=== PATIENT | female | born 1975 | race Caucasian/White ===

== ENCOUNTER 2024-01-25 07:38 | Emergency (ER) | payer OTHER, SELFPAY ==
[2024-01-25] VITALS (10 sets, daily range): BP systolic 131–136; BP diastolic 77–88; PULSE 60–69; RESP 16; TEMP 36.5; O2SAT 97–100
--- NOTE | ~2024-01-25 | CT_ITS ---
Non-contrast CT scan of the Abdomen and Pelvis Clinical indication: Right flank pain Technique: 2.5 mm axial scans were obtained through the abdomen and pelvis without intravenous or or al contrast. Dose reduction technique was used on this scan by utilizing automated exposure control a nd iterative reconstruction technique. The dose-length product (DLP) was 736.56 mGy-cm. Findings: Images through the lung bases reveal minimal right pleural effusion. There is no evidence of renal or ureteral calculi. The kidneys and the ureters are nondilated. The liver, spleen, pancreas, and adrenals appear normal. Small gallstone present. There is no aortic aneurysm. There is no evidence of bowel obstruction. Normal appendix. Images through the pelvis were performed. There is no evidence of ascites or lymphadenopathy. Urinary bladder unremarkable. No definite adnexal mass seen. Impression: Cholelithiasis. Minimal right pleural effusion. Reviewed, dictated and finalized at [facility]. Impression: Cholelithiasis. Minimal right pleural effusion.
--- NOTE | 2024-01-25 08:34 | PC.NURSE ---
RN to bedside to start IV and administer medication ordered. Pt requests to not receive medication or IV at this time unless needed per imaging. Will hold off on IV and med administration per patient request. Pt to restroom at this time to provide urine specimen. Plan for CT.
[2024-01-25 08:47] LABS: Appearance Urine Clear (Clear); Bilirubin Urine Negative (Negative); Blood Urine Negative (Negative); Color Urine Yellow (Yellow); Glucose Urine UA Negative (Negative); Ketones Urine Negative (Negative); Leukocyte Esterase Ur Negative LEU/UL (Negative); Nitrate Urine Negative (Negative); Protein Urine Negative (Negative); Specific Grav Ur 1.023 (1.001-1.035); pH Urine 6.5 (5.0-9.0)
[2024-01-25 08:48] LABS: Add Urine Microscopic? NO
--- NOTE | 2024-01-25 10:12 | ED.GENADULT ---
HPI - General Adult General Chief complaint: Back Pain/Injury Stated complaint: right flank pain, nausea Time Seen by Provider: 01/25/24 07:52 History of Present Illness HPI narrative: patient is a 48-year-old female who presents ER with right-sided back pain. sudden onset this morning. Comes in waves. Will occasionally cause nausea. No upper abdominal pain. Has had some mild lower abdominal discomfort. No urinary frequency urgency or dysuria. Pain in the back is worse with lying backwards or bending forwards. It is also worse with direct palpation of the area. No history kidney stones. No association with eating or drinking. Related Data Allergies Allergy/AdvReac Type Severity Reaction Status Date / Time No Known Allergies Allergy Unverified 01/25/24 07:39 Review of Systems Review of Systems: All systems reviewed & are unremarkable except as noted in HPI and below Constitutional: Constitutional: Reports no additional constitutional complaints ENT: Reports system reviewed and no additional complaints, except as documented Cardiovascular: Cardiovascular: Reports no additional cardiovascular complaints Respiratory: Respiratory: Reports no additional respiratory complaints Gastrointestinal: Gastrointestinal: Reports no additional gastrointestinal complaints Musculoskeletal: Musculoskeletal: Reports back pain, Denies arthralgias and Denies joint swelling Neurologic: Reports system reviewed and no additional complaints, except as documented PMFSH Past Medical History Medical History (Updated 01/25/24 @ 10:16 by Alexander Barr MD) Healthy female adult Exam Narrative: GENERAL: Well-appearing, well-nourished, and in no acute distress. HEAD: Normocephalic, atraumatic. ENT: Mucous membranes moist. CHEST: Clear to auscultation. No respiratory distress. HEART: Regular rate and rhythm. Normal peripheral pulses. ABDOMEN: Soft, nontender, nondistended. back: No midline tenderness the T/ L-spine pleural there is right-sided paraspinal tenderness near the level of L4 reproducing patient's pain. EXTREMITIES: Normal range of motion. No edema. SKIN: Warm, dry, no rash. NEURO: Alert and oriented x3. PSYCH: Normal mood and affect. Course Course Emergency Course: No evidence of kidney stone. Symptoms not felt to be related to cholelithiasis but patient educated about this finding. She is open to receiving IM Toradol. She does not will muscle relaxers as they make her feel different in the mornings. Vital Signs Vital signs: Vital Signs Temperature 97.7 F 01/25/24 08:19 Pulse Rate 69 01/25/24 08:19 Respiratory Rate 16 01/25/24 08:19 Blood Pressure 132/83 01/25/24 08:19 Pulse Oximetry 99 01/25/24 08:19 Oxygen Delivery Room Air 01/25/24 08:19 Temperature 97.7 F 01/25/24 08:19 Pulse Rate 69 01/25/24 08:19 Respiratory Rate 16 01/25/24 08:19 Blood Pressure 132/83 01/25/24 08:19 Pulse Oximetry 99 01/25/24 08:19 Oxygen Delivery Room Air 01/25/24 08:19 Medical Decision Making Vital Signs Vital Signs: Vital Signs Temperature 97.7 F 01/25/24 08:19 Pulse Rate 69 01/25/24 08:19 Respiratory Rate 16 01/25/24 08:19 Blood Pressure 132/83 01/25/24 08:19 Pulse Oximetry 99 01/25/24 08:19 Oxygen Delivery Room Air 01/25/24 08:19 Temperature 97.7 F 01/25/24 08:19 Pulse Rate 69 01/25/24 08:19 Respiratory Rate 16 01/25/24 08:19 Blood Pressure 132/83 01/25/24 08:19 Pulse Oximetry 99 01/25/24 08:19 Oxygen Delivery Room Air 01/25/24 08:19 Lab Data Labs: Lab Results 01/25/24 Range/Units 08:40 Urine Color Yellow (Yellow) Urine Appearance Clear (Clear) Urine pH 6.5 (5.0-9.0) Ur Specific [place] 1.023 (1.001-1.035) Urine Protein Negative (Negative) mg/dL Urine Glucose (UA) Negative (Negative) mg/dL Urine Ketones Negative (Negative) mg/dL Ur Blood (Man) Negative (Negative) Uri
[2024-01-25] MEDS: KETOROLAC (*BKC) 60 MG/2 ML VIAL IM (10:21)
== END 2024-01-25 10:32 | disposition home or self-care (01) ==
PROVIDERS: Emergency Provider Emergency Medicine
DX: S39.012A Strain of muscle, fascia and tendon of lower back, initial encounter (principal); K80.20 Calculus of gallbladder without cholecystitis without obstruction; X58.XXXA Exposure to other specified factors, initial encounter
CPT/HCPCS: 74176; 81003; 81025; 96372; 99284; J1885